=== PATIENT | male | born 1970 | race Caucasian/White ===

== ENCOUNTER 2018-12-13 03:55 | Emergency (ER) | payer SELFPAY ==
[2018-12-13] MEDS ORDERED: Ketorolac 60 MG/2 ML SDV IM ONE (04:28)
--- NOTE | 2018-12-13 04:34 | EDM.PDOC ---
ED HPI GENERAL MEDICAL PROBLEM - General Chief Complaint: Genitourinary Problem Stated Complaint: PAIN IN LEFT TESTICLE Time Seen by Provider: 12/13/18 04:06 - History of Present Illness INITIAL COMMENTS - FREE TEXT/NARRATIVE: HISTORY AND PHYSICAL: History of present illness: The patient is a 48-year-old male who presents with one and one half days of left testicular pain that has been constant and gets relieved with dosing of Tylenol or ibuprofen. The patient denies any trauma to the area and has no penile discharge no hematuria dysuria or frequency and has no history of problems. He has no abdominal pain no flank pain but has had episodes where his felt very hot and sometimes nauseated with the pain but he has not vomited. He has no rectal pain diarrhea or constipation. The patient denies STD risks and says that he had an episode of similar testicular pain on the right side about 7 years ago and saw a provider who examined him and said that he needed antibiotics but did not do any imaging or further testing. He says that after taking the antibiotics for 2 days the pain completely resolved. He is never been completely sure about what his diagnosis was at that time. The patient has been eating and drinking normally and currently in the ED he is having ongoing pain in the left testicle only. He has not noticed any skin changes or lesions and he has not noticed any overt swelling or size discrepancy of the left testicle versus the right. He says the pain will sometimes radiate up to his groin and inner thigh but not to his abdomen or flank. The patient does have a history of a right inguinal hernia repair as an adult but no surgical intervention on the left side. The patient denies any recent trauma and has not performed any heavy lifting Review of systems: As per history of present illness and below otherwise all systems reviewed and negative. Past medical history: As per history of present illness and as reviewed below otherwise noncontributory. Surgical history: As per history of present illness and as reviewed below otherwise noncontributory. Social history: No reported history of drug or alcohol abuse. Family history: As per history of present illness and as reviewed below otherwise noncontributory. Physical exam: General: Well-developed well-nourished man who is mildly overweight and nontoxic. Vital signs are noted by me HEENT: Atraumatic, normocephalic, negative for conjunctival pallor or scleral icterus, mucous membranes moist, throat clear, neck supple, nontender, trachea midline. Lungs: Clear to auscultation, breath sounds equal bilaterally, chest nontender. Heart: S1S2, regular, negative for clicks, rubs, or JVD. Abdomen: Soft, nondistended, nontender. Negative for masses or hepatosplenomegaly. NABS Pelvis: Stable nontender. Genitourinary: There is no inguinal adenopathy and no overt evidence of hernia on supine exam and there are no masses or lesions in the perineal area. There is no scrotal skin erythema and no skin lesions are seen in the testicles are descended bilaterally. The right testicle is within normal limits without any swelling pain or abnormalities on palpation. The left testicle has a slightly higher lie but there is a cremasteric reflex bilaterally. The left testicle appears to be equal in size to the right on palpation without any swelling and there is discomfort with the exam more in the inferior aspect then along the spermatic cord superior area. The patient was able to tolerate the exam but was very uncomfortable with palpation of the left testicle. Rectal: Deferred. Extremities: Atraumatic, negative for cords or calf pain. Neurovascular unremarkable. Neuro: Awake, alert, oriented. Cranial nerves II through XII unremarkable. Cerebellum unremarkable. Motor and sensory unremarkable throughout. Exam nonfocal. Diagnostics: UA with micro-urine culture scrotal ultrasound Therapeutics: Toradol Patient is aware of all testing results and care plan for home including antibiotic therapy. I discussed this case with Dr. Harris at [facility] and he is aware of ultrasound results and feels this is more likely an orchitis and he will follow him in his clinic. The patient is aware to call the clinic for a follow-up appointment. The patient says that he feels much improved after the Toradol Impression: Left testicular pain, orchitis Definitive disposition and diagnosis as appropriate pending reevaluation and review of above. Treatments [employer]: Reports: Acetaminophen, NSAIDS left scrotal Pain Score (Numeric/FACES): 10 - Related Data Allergies Allergy/AdvReac Type Severity Reaction Status Date / Time latex Allergy Rash Verified 12/13/18 04:12 Home Meds: Home Meds . [No Known Home Meds] 11/28/13 [History] ED ROS GENERAL - Review of Systems Review Of Systems: ROS reveals no pertinent complaints other than HPI. ED EXAM, GENERAL - Physical Exam Exam: See Below (See dictation) Course - Vital Signs Last Recorded V/S: Last Vital Signs Temp 36.1 C 12/13/18 04:10 Pulse 81 12/13/18 04:10 Resp 18 12/13/18 04:10 BP 165/96 H 12/13/18 04:10 Pulse Ox 98 12/13/18 04:10 - Orders/Labs/Meds Orders: Active Orders 24 hr Category Date Time Status Scrotal Duplex Ltd [US] Stat Exams 12/13/18 04:26 Taken Scrotum and Contents [US] Stat Exams 12/13/18 04:26 Taken CULTURE URINE [] Stat Lab 12/13/18 05:20 Received Labs: Laboratory Tests 12/13/18 Range/Units 05:20 Urine Color YELLOW Urine Appearance CLEAR Urine pH 6.0 (5.0-8.0) Ur Specific [place] 1.020 (1.001-1.035) Urine Protein NEGATIVE (NEGATIVE) mg/dL Urine Glucose (UA) NEGATIVE (NEGATIVE) mg/dL Urine Ketones NEGATIVE (NEGATIVE) mg/dL Urine Occult Blood SMALL H (NEGATIVE) Urine Nitrite NEGATIVE (NEGATIVE) Urine Bilirubin NEGATIVE (NEGATIVE) Urine Urobilinogen 0.2 (<2.0) EU/dL Ur Leukocyte Esterase NEGATIVE (NEGATIVE) Urine RBC 0-1 (0-2/HPF) Urine WBC 0-1 (0-5/HPF) Ur Epithelial Cells RARE (NONE-FEW) Urine Bacteria RARE (NEGATIVE) Urine Mucus LIGHT (NONE-MOD) Meds: Medications Discontinued Medications Generic Name Dose Route Start Last Admin Trade Name Elisha PRN Reason Stop Dose Admin Ketorolac Tromethamine 60 mg 12/13/18 04:28 12/13/18 04:36 Toradol IM 12/13/18 04:29 60 mg ONETIME ONE Administration Departure - Departure Time of Disposition: 05:49 Disposition: Home, Self-Care 01 Condition: Good Clinical Impression: Left testicular pain, Orchitis - Discharge Information Referrals: PCP,None [Primary Care Provider] - Forms: ED Department Discharge Additional Instructions: The following information is given to patients seen in the emergency department who are being discharged to home. This information is to outline your options for follow-up care. We provide all patients seen in our emergency department with a follow-up referral. The need for follow-up, as well as the timing and circumstances, are variable depending upon the specifics of your emergency department visit. If you don't have a primary care physician on staff, we will provide you with a referral. We always advise you to contact your personal physician following an emergency department visit to inform them of the circumstance of the visit and for follow-up with them and/or the need for any referrals to a consulting specialist. The emergency department will also refer you to a specialist when appropriate. This referral assures that you have the opportunity for followup care with a specialist. All of these measure are taken in an effort to provide you with optimal care, which includes your followup. Under all circumstances we always encourage you to contact your private physician who remains a resource for coordinating your care. When calling for followup care, please make the office aware that this follow-up is from your recent emergency room visit. If for any reason you are refused follow-up, please contact the [facility] emergency department at and ask to speak to the emergency department charge nurse. [facility] [address] [place] [id number] Wear snug briefs to prevent any trauma or motion of the testicle as this will provide support and reduce pain. Please take antibiotics as prescribed to you from [facility], ciprofloxacin, as well as the ibuprofen for pain management. Please call and schedule a follow-up appointment in the clinic to see our urologist Dr. Harris and return to ER as needed and as discussed - My Orders Last 24 Hours: My Active Orders 12/13/18 04:26 Scrotal Duplex Ltd [US] Stat Scrotum and Contents [US] Stat 12/13/18 05:20 CULTURE URINE [RM] Stat - Assessment/Plan Last 24 Hours: My Active Orders 12/13/18 04:26 Scrotal Duplex Ltd [US] Stat Scrotum and Contents [US] Stat 12/13/18 05:20 CULTURE URINE [RM] Stat
--- NOTE | 2018-12-13 12:33 | US ---
INDICATION: Pain left testicle for 2 days, history hernia surgery right groin a few years ago TECHNIQUE: Ultrasound scrotum and contents. Real-time vera scale sonographic images with spectral and color Doppler imaging of the testicles were obtained. COMPARISON: None FINDINGS: Right testis: 4.8 x 2.2 x 2.7 cm. The right testis is appearance and echotexture. Unremarkable blood flow seen. Left testis: 3.9 x 2 x 2.6 cm. The left testis is mildly heterogeneous in echotexture and hypoechoic in appearance. There is mild increased blood flow in the left testis compared to the right. Epididymis: The epididymis are unremarkable in size and echogenicity and have normal blood flow. Soft tissue: No significant hydrocele or varicocele noted. No adenopathy is seen. IMPRESSION: 1. The left testis is mildly heterogeneous in echotexture and hypoechoic in appearance. There is mild increased blood flow in the left testis compared to the right. Clinical correlation is recommended to exclude orchitis and less likely, the possibility resolved intermittent left testicular torsion. Dictated by Eldon Pittman MD @ 12/13/2018 5:28:39 AM Dictated by: Eldon Pittman MD @ 12/13/2018 05:28:43 Signed by: Eldon Pittman MD @12/13/2018 5:28:43 AM (Electronic Signature) MTDD
== END 2018-12-13 06:00 | disposition home or self-care (01) ==
LOC: MW.ED 03:55
DX: N50.812 Left testicular pain (principal); N45.2 Orchitis; Z91.040 Latex allergy status
CPT/HCPCS: 76870; 81001; 87086; 93976; 96372; 99284; J1885

== ENCOUNTER 2019-01-01 16:13 | Emergency (ER) | payer OTHER ==
[2019-01-01] MEDS ORDERED: Diphtheria,Pertussis(Acell),Tetanus Vaccine 0.5 ML Syringe IM ONE (16:50)
[2019-01-01] MEDS ORDERED: Ketorolac 60 MG/2 ML SDV IM ONE (16:52)
--- NOTE | 2019-01-01 16:59 | EDM.PDOC ---
ED HPI GENERAL MEDICAL PROBLEM - General Chief Complaint: Laceration Stated Complaint: LEFT HAND Time Seen by Provider: 01/01/19 16:26 Source of Information: Reports: Patient History Limitations: Reports: No Limitations - History of Present Illness INITIAL COMMENTS - FREE TEXT/NARRATIVE: HISTORY AND PHYSICAL: History of present illness: Patient is a 48-year-old male presents to the ED today with concern of left hand injury that occurred shortly prior to arrival to the ED. Patient states he was at work working with a screwdriver when he had slipped and the screwdriver went into his left hand. Patient states there is been minimal bleeding since and he has not taken anything for her symptoms. Patient states he is not up-to- date on his tetanus vaccine. Patient denies any prior injury or any other symptoms or concerns. Patient denies fever, chills, chest pain, shortness of breath, or cough. Denies headache, neck stiff ness, change in vision, syncope, or near syncope. Denies nausea, vomiting, abdominal pain, diarrhea, constipation, or dysuria. Has not noted any blood in urine or stool. Patient has been eating and drinking appropriately. Review of systems: As per history of present illness and below otherwise all systems reviewed and negative. Past medical history: As per history of present illness and as reviewed below otherwise noncontributory. Surgical history: As per history of present illness and as reviewed below otherwise noncontributory. Social history: See social history for further information Family history: As per history of present illness and as reviewed below otherwise noncontributory. Physical exam: General: Patient is alert, oriented, and in no acute distress. Patient sitting comfortably on exam table. HEENT: Atraumatic, normocephalic, pupils equal and reactive bilaterally, negative for conjunctival pallor or scleral icterus, mucous membranes moist, TMs normal bilaterally, throat clear, neck supple, nontender, trachea midline. No drooling or trismus noted. No meningeal signs. No hot potato voice noted. Lungs: Clear to auscultation, breath sounds equal bilaterally, chest nontender. Heart: S1S2, regular rate and rhythm without overt murmur Abdomen: Soft, nondistended, nontender. Negative for masses or hepatosplenomegaly. Negative for costovertebral tenderness. Pelvis: Stable nontender. Genitourinary: Deferred. Rectal: Deferred. Skin: Intact, warm, dry. No lesions or rashes noted. Extremities: Negative for cords or calf pain. Neurovascular unremarkable. There is a pinpoint puncture wound of the left hand at the base of the thenar muscle. Radial pulses grossly intact of the left upper extremity with capillary refill less than 2 seconds. Patient is unable to fully make a fist but does have ROM of all digits and wrist. Neuro: Awake, alert, oriented. Cranial nerves II through XII unremarkable. Cerebellum unremarkable. Motor and sensory unremarkable throughout. Exam nonfocal. Notes: Dr. Johnson directly involved in patient care. The puncture wound is very small and does not require sutures. I did call and speak to Dr. Cassidy, orthopedic applications support specialist for [facility] who states that patient should continue to monitor over the next few days and to follow up with the hand specialist in the next week. Dr. Cassidy does also request that patient be placed on antibiotics for 7 days. He states that even with the potential neurological or tendon issue that before repairing these, would require monitoring for improvement of symptoms prior and not an emergency/ urgency injury. Discussed this with patient and the importance for follow-up with a hand specialist. Voices understanding and is agreeable to plan of care. Denies any further questions or concerns at this time. Diagnostics: Hand x-ray Therapeutics: Toradol, tdap, lidocaine Prescription: Keflex Impression: Hand puncture wound, left Plan: 1. Take medication as prescribed. You can alternate ibuprofen and Tylenol as directed for pain and discomfort. 2. Follow-up with your primary care provider and the hand specialist as discussed. Return to the ED as needed and as discussed. Definitive disposition and diagnosis as appropriate pending reevaluation and review of above. Hand Pain Score (Numeric/FACES): 9 - Related Data Allergies Allergy/AdvReac Type Severity Reaction Status Date / Time latex Allergy Rash Verified 01/01/19 16:57 Home Meds: Home Meds cephALEXin [Keflex] 500 mg PO Q8H 7 Days #21 cap 01/01/19 [Rx] Past Medical History HEENT History: Reports: None Cardiovascular History: Reports: None Respiratory History: Reports: None Gastrointestinal History: Reports: None Other Genitourinary History: right scrotal issues 7yrs ago. Musculoskeletal History: Reports: None Neurological History: Reports: None Psychiatric History: Reports: Anxiety, Depression Endocrine/Metabolic History: Reports: None Insulin Pump Model and Skid Adzer: N/A Hematologic History: Reports: None Immunologic History: Reports: None Oncologic (Cancer) History: Reports: None Dermatologic History: Reports: None - Infectious Disease History Infectious Disease History: Reports: None - Past Surgical History Head Surgeries/Procedures: Reports: None GI Surgical History: Reports: Hernia, Inguinal Male Surgical History: Reports: None Social & Family History - Family History Family Medical History: Noncontributory - Caffeine Use Caffeine Use: Reports: Coffee, Energy Drinks, Soda ED ROS GENERAL - Review of Systems Review Of Systems: ROS reveals no pertinent complaints other than HPI. ED EXAM, SKIN/RASH Exam: See Below (See dictation) Course - Vital Signs Last Recorded V/S: Last Vital Signs Temp 97.8 F 01/01/19 16:54 Pulse 78 01/01/19 16:54 Resp 16 01/01/19 16:54 BP 172/100 H 01/01/19 16:54 Pulse Ox 94 L 01/01/19 16:54 - Orders/Labs/Meds Orders: Active Orders 24 hr Category Date Time Status Vaccines to be Administered [RC] PER UNIT ROUTINE Care 01/01/19 16:50 Active Meds: Medications Discontinued Medications Generic Name Dose Route Start Last Admin Trade Name Freq PRN Reason Stop Dose Admin Diphtheria/Tetanus/Acell Pertussis 0.5 ml 01/01/19 16:50 01/01/19 17:25 Adacel IM 01/01/19 16:51 0.5 ml .ONCE ONE Administration Ketorolac Tromethamine 60 mg 01/01/19 16:52 01/01/19 17:26 Toradol IM 01/01/19 16:53 60 mg ONETIME ONE Administration Lidocaine HCl 5 ml 01/01/19 17:40 Xylocaine-Mpf 1% INJECT 01/01/19 17:41 ONETIME ONE Departure - Departure Time of Disposition: 18:29 Disposition: Home, Self-Care 01 Clinical Impression: Puncture wound of hand Qualifiers: Encounter type: initial encounter Foreign body presence: without foreign body Laterality: left Qualified Code(s): S61.432A - Puncture wound without foreign body of left hand, initial encounter - Discharge Information Prescriptions: cephALEXin [Keflex] 500 mg PO Q8H 7 Days #21 cap Referrals: PCP,None [Primary Care Provider] - Forms: ED Department Discharge Additional Instructions: The following information is given to patients seen in the emergency department who are being discharged to home. This information is to outline your options for follow-up care. We provide all patients seen in our emergency department with a follow-up referral. The need for follow-up, as well as the timing and circumstances, are variable depending upon the specifics of your emergency department visit. If you don't have a primary care physician on staff, we will provide you with a referral. We always advise you to contact your personal physician following an emergency department visit to inform them of the circumstance of the visit and for follow-up with them and/or the need for any referrals to a consulting specialist. The emergency department will also refer you to a specialist when appropriate. This referral assures that you have the opportunity for follow-up care with a specialist. All of these measure are taken in an effort to provide you with optimal care, which includes your follow-up. Under all circumstances we always encourage you to contact your private physician who remains a resource for coordinating your care. When calling for follow-up care, please make the office aware that this follow-up is from your recent emergency room visit. If for any reason you are refused follow-up, please contact the [facility] Emergency Department at and asked to speak to the emergency department charge nurse. [facility] Primary Care [address] [place] [id number] [address] [facility], Hand [facility] Wrist [facility] [address] [facility] [place] [address] PH: [phone] 1. Take medication as prescribed. You can alternate ibuprofen and Tylenol as directed for pain and discomfort. 2. Follow-up with your primary care provider and the hand specialist as discussed. Return to the ED as needed and as discussed. - My Orders Last 24 Hours: My Active Orders 01/01/19 16:50 Vaccines to be Administered [RC] PER UNIT ROUTINE - Assessment/Plan Last 24 Hours: My Active Orders 01/01/19 16:50 Vaccines to be Administered [RC] PER UNIT ROUTINE
--- NOTE | 2019-01-01 17:26 | CR ---
Indication: Puncture wound. Technique: Three views of the left hand were obtained. Comparison: None Findings: 2 radiopacities are identified in the soft tissues anterior to the 2nd metacarpal. These both measure 2-3 millimeters in size. These are seen on all 3 images. No fracture or subluxation is identified. Impression: Two radiopacities identified in the soft tissues anterior to the mid diaphysis of the 2nd metacarpal. Dictated by Anneliese De Leon MD @ Jan 01 2019 5:23PM Signed by Dr. Anneliese De Leon @ Jan 01 2019 5:24PM
== END 2019-01-01 18:40 | disposition home or self-care (01) ==
LOC: MW.ED 16:13
DX: S61.432A Puncture wound without foreign body of left hand, initial encounter (principal); Z23 Encounter for immunization; Z91.040 Latex allergy status; W27.0XXA Contact with workbench tool, initial encounter; Y93.89 Activity, other specified; Y92.89 Other specified places as the place of occurrence of the external cause; Y99.0 Civilian activity done for income or pay
CPT/HCPCS: 73130; 90471; 90715; 96372; 99283; J1885; J2001

== ENCOUNTER 2024-07-15 14:23 | Emergency (ER) | payer OTHER ==
[2024-07-15] MEDS: Acetaminophen 325 MG Tab PO ONE (15:32)
[2024-07-15] MEDS: Ketorolac 30 MG/ML SDV IM ONE (15:33)
[2024-07-15] MEDS: oxyCODONE 5 MG Tab PO ONE (15:34)
[2024-07-15] MEDS: Lidocaine 4% Patch TOP PRN (15:35)
== END 2024-07-15 16:12 | disposition home or self-care (01) ==
LOC: MW.ED 14:23
DX: M54.50 Low back pain, unspecified (principal); Z91.040 Latex allergy status; Z79.899 Other long term (current) drug therapy; W11.XXXA Fall on and from ladder, initial encounter; Y93.89 Activity, other specified
CPT/HCPCS: 71046; 72131; 72170; 96372; 99284; A9270; J1885; 99283